=== PATIENT | male | born 1960 | race Two or more races ===

== ENCOUNTER 2020-09-07 04:58 | Inpatient (IN) | payer OTHER ==
[2020-09-07] VITALS (22 sets, daily range): BP systolic 119–157; BP diastolic 66–89
[~2020-09-07] VITALS: Ht 170.2 cm; Wt 83.0 kg
[~2020-09-07 04:58] MED LIST: LIPITOR40 MG ORAL; VITAMIN D PO
[2020-09-07] MEDS ORDERED: Ropivacaine 5mg/ml Vial 30ml INJ ONE (06:37)
[2020-09-07] MEDS ORDERED: Thrombin 5000 units TOPIC ONE (06:37)
[2020-09-07] MEDS ORDERED: Gelfoam Size TOPIC ONE (06:37)
[2020-09-07] MEDS ORDERED: Bacitracin 50000 Units Vial ONE (06:37)
[2020-09-07] MEDS ORDERED: Atropine Sulfate 0.4mg/ml inj IVP PRN (06:45)
[2020-09-07] MEDS ORDERED: Acetaminophen (Non formulary) 100 ML IV ONE (06:45)
[2020-09-07] MEDS ORDERED: Meperidine 25mg/1ml Inj (FOR RIGORS ONLY) IV PRN (06:45)
[2020-09-07] MEDS ORDERED: Metoclopramide 10mg/2ml Inj IVP PRN ×2 (06:45→08:45)
[2020-09-07] MEDS ORDERED: LR 1000ml 1,000 ML IVLG SCH (06:45)
[2020-09-07] MEDS ORDERED: Labetalol 5mg/ml 20ml vial IV PRN (06:45)
[2020-09-07] MEDS ORDERED: Ketorolac 30mg Inj IV PRN ×2 (06:45)
[2020-09-07] MEDS ORDERED: LORazepam Inj 2mg/ml 1ml IV PRN (06:45)
[2020-09-07] MEDS ORDERED: oxyCODONE HCL/Acetaminophen 5/325mg ORAL PRN (06:45)
[2020-09-07] MEDS ORDERED: Midazolam 2mg/2ml Inj IVP PRN (06:45)
[2020-09-07] MEDS ORDERED: fentaNYL 100 mcg/2 mL IV PRN (06:45)
[2020-09-07] MEDS ORDERED: Hydromorphone 0.5mg/0.5ml inj IVP PRN (06:45)
[2020-09-07] MEDS ORDERED: HYDROcodone/Acetamin 7.5/325 tab ORAL PRN ×3 (06:45→08:45)
[2020-09-07] MEDS ORDERED: DiphenhydrAMINE 50mg/ml Inj IVP PRN (06:45)
[2020-09-07] MEDS ORDERED: HYDROcodone/Acetamin 5/325 tab ORAL PRN (06:45)
--- NOTE | 2020-09-07 06:48 | Anethesia Preoperative Eval ---
Anesthesia Pre-op PMH/ROS General Date of Evaluation: Sep 07, 2020 Time of Evaluation: 06:49 Anesthesiologist: Antonio ASA Score: ASA 3 Mallampati Score Class I : Soft palate, uvula, fauces, pillars visible Class II: Soft palate, uvula, fauces visible Class III: Soft palate, base of uvula visible Class IV: Only hard plate visible Mallampati Classification: Class II Surgeon: Mario Diagnosis: Back Pain Surgical Procedure: ALIF L5-S1 Anesthesia History: none Family History: no anesthesia problems Allergies: Coded Allergies: No Known Allergies (Unverified , 09/03/20) Medications: see eMAR Patient NPO?: Yes Past Medical History Cardiovascular: Reports: HTN, other - HL Gastrointestinal/Genitourinary: Reports: GERD Other: obesity - BMI 30 PSxH Narrative: Prev Back Sx Anesthesia Pre-op Phys. Exam Physician Exam Last Vital Signs Date Time Temp Pulse Resp B/P (MAP) Pulse Ox O2 Delivery O2 Flow Rate FiO2 09/07/20 05:40 Room Air 09/07/20 05:38 98.4 56 18 142/88 (106) 98 Constitutional: NAD Neurologic: CN 2-12 intact Cardiovascular: RRR Respiratory: CTA Gastrointestinal: S/NT/ND Airway Exam Mallampati Score: Class II MO: full ROM: limited Teeth: missing, intact Anesthesia Pre-op A/P Risk Assessment & Plan Assessment: ASA 3 Plan: GA, SED, GlideScope Status Change Before Surgery: No Pre-Antibiotics Dru Grams Ancef IV Given Within 1 Hr of Incision: Yes Time Given: 07:21 Ras Alvarez MD Sep 07, 2020 06:47
--- NOTE | 2020-09-07 06:48 | Pre-Procedure Note/Attestation ---
Pre-Procedure Note/Attestation Complete Prior to Procedure Planned Procedure: not applicable Procedure Narrative: Planned L5/S1 Anterior Lumbar Decompression and Fusion Indications for Procedure Pre-Operative Diagnosis: Low Back pain Attestation I attest that I discussed the nature of the procedure; its benefits; risks and complications; and alternatives (and the risks and benefits of such alternatives), prior to the procedure, with the patient (or the patient's legal district representative). I attest that, if there was a reasonable possibility of needing a blood transfusion, the patient (or the patient's legal district representative) was given the [facility] standardized written summary, pursuant to the [place] Blood Safety Act ([place] Health and Safety Code # 1645, as amended). I attest that I re-evaluated the patient just prior to the surgery and that there has been no change in the patient's H&P, except as documented below: Pedro Dunn Sep 07, 2020 06:48
[2020-09-07] MEDS ORDERED: Sodium Chloride 10ml vial INJ ONE (06:50)
[2020-09-07] MEDS ORDERED: Lidocaine 1% MPF 10mg/ml 5ml ONE (06:50)
[2020-09-07] MEDS ORDERED: Lidocaine 1% Plain 30 ml INJ ONE (06:59)
[2020-09-07] MEDS ORDERED: propofoL 1,000mg/100ml IV ONE (07:00)
[2020-09-07] MEDS ORDERED: Neostigmine 1mg/ml 10ml Inj ONE (07:00)
[2020-09-07] MEDS ORDERED: NS Irrig 1000ml ONE (07:00)
[2020-09-07] MEDS ORDERED: Sterile Water Irrig 1000ml IRRIG ONE (07:00)
[2020-09-07] MEDS ORDERED: LR 1000ml ONE (07:00)
[2020-09-07] MEDS ORDERED: ceFAZolin sod 1 GM in NS 55 ML IVPB ONE (07:00)
--- NOTE | 2020-09-07 07:49 | Immediate Post-Op Evaluation ---
Immediate Post-Op Evalulation Immediate Post-Op Evalulation Procedure: ALIF L5-S1 Date of Evaluation: Sep 07, 2020 Time of Evaluation: 09:20 IV Fluids: 1000 LR Blood Products: 0 Estimated Blood Loss: 25 Urinary Output: 0 Blood Pressure Systolic: 103 Blood Pressure Diastolic: 83 Pulse Rate: 66 Respiratory Rate: 16 O2 Sat by Pulse Oximetry: 100 Temperature (Fahrenheit): 98.8 Pain Score (1-10): 2 Nausea: No Vomiting: No Complications 0 Patient Status: awake, reacts, patent, extubated, none Hydration Status: adequate Dru Grams Ancef IV Given Within 1 Hr of Incision: Yes Time Given: 07:21 Ras Alvarez MD Sep 07, 2020 07:49
--- NOTE | 2020-09-07 07:50 | 48 Hour Post Anesthesia Eval ---
Post Anesthesia Evaluation Procedure: ALIF L5-S1 Date of Evaluation: Sep 07, 2020 Time of Evaluation: 11:46 Blood Pressure Systolic: 136 0: 78 Pulse Rate: 64 Respiratory Rate: 18 Temperature (Fahrenheit): 98.6 O2 Sat by Pulse Oximetry: 100 Airway: patent Nausea: No Vomiting: No Pain Intensity: 2 Hydration Status: adequate Cardiopulmonary Status: Stable Mental Status/LOC: patient returned to baseline Follow-up Care/Observations: 0 Post-Anesthesia Complications: 0 Follow-up care needed: N/A Ras Alvarez MD Sep 07, 2020 07:50
[2020-09-07] MEDS ORDERED: Glycopyrrolate 0.2mg/ml 1ml Vial ONE ×2 (08:06→08:37)
--- NOTE | 2020-09-07 08:42 | Operative Note - PDOC ---
Operative Note Operative Note Pre-op Diagnosis: Low Back pain Procedure: Anterior L5/S1 Lumbar Decompression and Fusion Post-op Diagnosis: same as pre-op Operative Findings: consistent w/pre-op dx studies Surgeon: Mario Head Pastry Chef: VARSHA Dunn Additional Surgeons: Vega - Vascular Access Anesthesiologist: Woo Chahal Anesthesia: general Specimen: yes Condition: stable Drains: none Implant(s) used?: Yes - Lex InFix Meduim +degree, 8mm height, Lex DBPedro Nicole Sep 07, 2020 08:42
[2020-09-07] MEDS ORDERED: HYDROmorphone 1mg/ml Carpuject SUBQ PRN (08:45)
[2020-09-07] MEDS ORDERED: Naloxone 0.4mg/ml Inj IVP PRN (08:45)
[2020-09-07] MEDS ORDERED: HYDROmorphone 1mg/ml Carpuject IVP PRN (08:45)
[2020-09-07] MEDS ORDERED: Rate Change PCA 1 Each MISC PRN ×2 (09:00)
[2020-09-07] MEDS ORDERED: PCA HYDROmorphone 1mg/ml 30 ML IV PRN (09:00)
[2020-09-07] MEDS ORDERED: PCA Education Pamphlet MISC ONE ×2 (09:00)
--- NOTE | 2020-09-07 09:59 | Operative Note - Dictated ---
DATE OF OPERATION: 09/07/2020 ANESTHESIA: General endotracheal with arterial blood pressure monitoring. ANESTHESIOLOGIST: Ras Alvarez MD. CO-SURGEON: Dr. Vega, for vascular approach. SURGEON: Pedro Martin MD. GROUND INTELLIGENCE OFFICER: Mere Gupta PREOPERATIVE DIAGNOSIS: Collapse, instability, canal and foraminal stenosis at L5-S1. POSTOPERATIVE DIAGNOSIS: Collapse, instability, canal and foraminal stenosis at L5-S1. OPERATIVE PROCEDURE: Left pararectus retroperitoneal approach to the lumbar spine with vessel mobilization and retraction by Dr. Vega using a table fixed frame reverse tip blades followed by an anterior annulotomy, nuclear discectomy, partial vertebrectomy, and open reduction and internal fixation using an InFix cage medium in size, 8 mm in height with 3 + 3 degrees of lordosis. Fusion was accomplished using autogenous bone harvested during decompression. Image intensifier was also used. The patient was prepped and draped supine on the operating table. The anterior incision paramidline was made by Dr. Vega. The rectus was mobilized. The retroperitoneal space was entered. The aorta and iliac vessels were identified, freed and retracted allowing access to the anterior anulus of the lumbosacral disc. There were hypertrophic osteophytes most prominent on the left making it difficult to approach the disc from the left side. There was less of an osteophytic obstruction in the center and right. The anterior osteophytes were removed following direct excision of the exposed anulus. The cartilaginous endplate and soft disc was then removed slowly from front to back using angled and straight curettes, pituitaries and Kerrisons. [id number]-[id number] distraction was accomplished with 8 mm to 11 mm lordotic distractors. There were placed from [id number] to allow progressively more visualization of the disc until the posterior disc was visualized in the PLL and disc anulus were removed as well as posterior osteophytes. The space was distracted with an 8 mm template in position. The distraction was symmetrical although the position of the distractor was more to the right, anterior to the posterolateral corner of the vertebral body where there was a nerve root extending outward into the foramen. The endplates were placed in with 3 + 3 degrees of lordosis. The side struts were then tapped into place and the position was checked. The building cleaning supervisor was then removed and the position was again checked and then locked into place by cold welding of the endplates to the lateral support. Position was again checked. There was good contact with the endplates with distraction of the disc with overall lordosis although because of the osteophytic asymmetry. The implant was locked one side than the other however with very good stabilization and good total contact. The wound was copiously irrigated. The anterior wound was closed including the anterior posterior rectus sheath, subcutaneous and skin. Blood loss was not significant. The patient was placed in a compression bandage and returned to recovery room in good condition. Pedro Martin M.D. DR: BRIDGETT JOB#: [id number] CC: JAZZMINE
--- NOTE | 2020-09-07 11:00 | NUR ---
NURSE NOTES: PATIENT ARRIVED TO ROOM ON BED. AOX4. ASSESSMENT DONE. DENIES PAIN TO SURGICAL SITE. DRSG C/D/I. NPO PER MD ORDERS. PATIENT AWARE. PATIENT INSTRUCTED HOW TO USE DRIFT MINER. RETURN DEMONSTRATION GOOD. PATIENT ORIENTED TO ROOM. BED IN LOW AND LOCKED POSITION. CALL LIGHT WITHIN ARM'S REACH. REPORT RECEIVED.
[2020-09-07] MEDS: D5 1/2NS w/KCl 20mEq 1,000 ML IV SCH ×2 (13:08→23:25)
--- NOTE | 2020-09-07 13:27 | Diagnostic Imaging Report ---
CLINICAL HISTORY: Back pain. Fluoroscopic imaging from spinal surgery COMPARISON: None FINDINGS: Fluoroscopy independent procedure performed for spinal surgery. 8.5 seconds of fluoroscopy time utilized by the ordering physician. Total cumulative dose is 3.61 mGy and 0.1154 mGy.m2. Total of 3 spot images are obtained. IMPRESSION: FLUOROSCOPIC IMAGING FROM SPINAL SURGERY. PLEASE SEE OPERATIVE REPORT.
[2020-09-07] MEDS: ceFAZolin sod 1 GM in D5W 55 ML IV SCH ×2 (14:46→22:17)
--- NOTE | 2020-09-07 15:59 | Operative Note - Dictated ---
DATE OF OPERATION: 09/07/2020 VASCULAR SURGEON: Wiliam Vega MD SPINE SURGEON: Pedro Martin MD BLOCK MACHINE OPERATOR: ANMOL Gupta PREOPERATIVE DIAGNOSIS: Lumbar pain. POSTOPERATIVE DIAGNOSIS: Lumbar pain. PROCEDURE: Anterior retroperitoneal exposure of L5-S1 vertebral interspace, right retroperitoneal approach. INDICATIONS: The patient is a very pleasant gentleman who was seen prior to surgery. He has been scheduled for anterior spine operation at L5-S1. He has no prior history of anterior spine surgery. No history of deep venous thrombosis or bleeding complications described. Discussion was had both with him and his , both in Montenegrin and Wallisian, to explain the risks of vascular surgery, possibly vascular injury, possible need for blood transfusion, deep venous thrombosis prophylaxis were discussed. DESCRIPTION OF FINDINGS: A vertical midline incision was used. Right retroperitoneal approach was used. There was no peritoneal or ureteral violation. There was no vascular injury. Exposure of L5-S1 was obtained below the iliac bifurcation confirmed with fluoroscopy. On completion, the peritoneum and ureter intact. Iliac vessels intact. BLOOD LOSS: Less than 100 mL. COMPLICATIONS: None. DESCRIPTION OF PROCEDURE: The patient was taken to the operative room. General anesthesia was induced. IV antibiotics were given. The patient's abdomen was prepped and draped. Appropriate time-out for procedure was taken. A low vertical midline incision was made infraumbilically. The anterior fascia was incised onto its midline. A plane was identified posterior to the right rectus abdominis and developed posterolaterally towards the patient's right. The retroperitoneal space was entered. Upon entry below the arcuate line, the peritoneum and ureter was swept towards the patient's left exposing the right common iliac artery and vein. Dissection carried medially around the right iliac vessels and then the anterior surface of L5-S1 was palpated. The right iliac vessels were retracted laterally. The peritoneum and ureter were swept towards the patient's left. The middle sacral vessels were ligated with vascular clips and divided and then the medial border of the left iliac vein was visualized and swept laterally and Omni retractors were placed. Fluoroscopy was used to confirm the appropriate level. The instrumentation was performed at L5-S1 and dictated separately. On completion, retractor gently removed. The peritoneum and ureter were intact. Iliac vessels intact. Anterior fascia was then closed with #1 PDS in running fashion and the skin and subcutaneous tissue were then closed with 3-0 Vicryl and 4-0 Monocryl in running subcuticular closure technique. Estimated blood loss less than 100 mL. Complications none. Wiliam Vega M.D. DR: URBANO JOB#: [id number] CC: MD WILIAM Vasquez MD ; FAX#: [phone]
--- NOTE | 2020-09-07 18:00 | NUR ---
NURSE NOTES: PATIENT REMAINS STABLE AFTER SURGERY. ABD SURGICAL SITE C/D/I. NO FLATUS PRESENT. PAIN CONTROLLED WITH MECHANICAL ASSEMBLY TECHNICIAN. VSS. AFEBRILE. PATIENT ENCOURAGE TO C/D/B AND USE I/S INSTRUCTED RETURN DEMONSTRATION SUCCESSFUL. VOIDING W/O DIFFICULTY.
[2020-09-07] MEDS ORDERED: PCA shift volume MISC SCH (19:00)
[2020-09-07] MEDS: PCA shift volume MISC SCH (19:12)
--- NOTE | 2020-09-07 19:27 | NUR ---
NURSE HAND-OFF: Important Events on Shift: NONE Patient Status: STABLE Diet: STRICT NPO Pending Orders: N/A Pending Results/Labs:N/A Pending MD notification:N/A Latest Vital Signs: Temperature 98.4 , Pulse 86 , B/P 120 /68 , Respiratory Rate 18 , O2 SAT 97 , Nasal Cannula, 3 L Vital Sign Comment: HAS ETCO2 ATTACHED. Latest Rg Fall Score: 35 Fall Risk: Medium Risk Safety Measures: Call light , Bed Alarm , Side Rails Side Rails x2, Bed position . Fall Precautions: Report given to QUOC MAY
--- NOTE | 2020-09-07 19:34 | NUR ---
NURSE NOTES: Patient awake in bed, alert and oriented x4, on O2 @ 3LPM via nasal cannula. Dressing dry and intact with small stain. Per patient he hasn't passed gas yet. Instructed to use call light for assistance. Bed in lowest, lock engaged and alarm on. Will continue to monitor.
[2020-09-08] VITALS: BP 123/73
[2020-09-08 04:00] VITALS: BP_SYST 123; BP_SYST 127; BP_SYST 150; BP_DIAS 69; BP_DIAS 73; BP_DIAS 83
[2020-09-08] MEDS: ceFAZolin sod 1 GM in D5W 55 ML IV SCH (06:05)
[2020-09-08] MEDS: PCA shift volume MISC SCH ×2 (07:00→19:10)
--- NOTE | 2020-09-08 07:45 | NUR ---
NURSE NOTES: Patient awake in bed, alert and oriented x4, breathing even and unlabored. Pt c/o pain on surgical site 10/09. Checked ARMORED TRANSPORT SERVICE MANAGER setting. Dressing intact with little stain. Per patient he hasn't passed gas yet. Instructed to use call light for assistance. Pt verbalized understanding. Bed in lowest, lock engaged and alarm on. Will continue to monitor.
[2020-09-08 08:00] VITALS: BP 130/73
[2020-09-08] MEDS: D5 1/2NS w/KCl 20mEq 1,000 ML IV SCH ×2 (08:00→17:54)
--- NOTE | 2020-09-08 09:30 | NUR ---
PT EVALUATION NOTE Patient seen for initial evaluation and treatment initiated. Patient presents with pain and impaired functional mobility s/p lumbar spine surgery. Patient instructed in back precautions and in log roll technique for in/OOB. Patient required min assist for bed mobility and for transfers using FWW. Patient c/o dizziness in sitting and standing and declined ambulation, however was able to take several small side steps with the FWW. Patient will benefit from skilled inpatient PT intervention to improve functional mobility, safety and activity tolerance, and to ensure compliance with spine precautions. Anticipate discharge home once medically cleared by MD. Recommend FWW for ambulation and raised toilet seat for home use. Addendum: 09/08/20 at 1243 by NOAH VALLEJO PT Amended: Links added.
[2020-09-08 12:00] VITALS: BP 134/66
[2020-09-08] MEDS ORDERED: ATORVASTATIN CA20 MG ORAL (12:25)
[2020-09-08] MEDS ORDERED: VITAMIN D3125 MCG PO (12:25)
--- NOTE | 2020-09-08 12:47 | General Surgery Progress Note ---
General Surgery-Progress Note Subjective Procedure Performed Anterior L5/S1 Lumbar Decompression and Fusion Symptoms: improved Objective Last 24 Hour Vital Signs Date Time Temp Pulse Resp B/P (MAP) Pulse Ox O2 Delivery O2 Flow Rate FiO2 09/08/20 09:00 Room Air 09/08/20 08:00 99.2 75 16 130/73 (92) 100 09/08/20 08:00 66 18 100 09/08/20 04:00 97.6 64 16 150/83 (105) 100 09/08/20 04:00 66 18 100 09/08/20 00:00 99.0 66 16 123/73 (90) 100 09/08/20 00:00 66 16 100 09/07/20 21:00 Nasal Cannula 3.0 09/07/20 20:00 61 16 99 09/07/20 20:00 98.1 61 16 157/75 (102) 99 09/07/20 16:00 86 18 97 09/07/20 15:46 98.4 86 18 120/68 (85) 97 09/07/20 14:00 99.0 78 16 119/67 (84) 99 09/07/20 13:00 99.0 60 18 127/69 (88) 97 I&O Intake and Output 09/07/20 09/08/20 19:00 07:00 Intake Total 1855 ml 955 ml Output Total 300 ml 2100 ml Balance 1555 ml -1145 ml Intake IV Total 1855 ml 955 ml Output Urine Total 250 ml 2100 ml Estimated Blood Loss 50 ml # Voids 6 Dressing: dry Wound: clean Drains: none Additional Comments Patient getting out of bed with physical therapy, no brace. No lower GI activity yet. Neuro intact. Pedro Trotter Sep 08, 2020 12:47
[2020-09-08 16:00] VITALS: BP_SYST 112; BP_SYST 119; BP_DIAS 66; BP_DIAS 69
--- NOTE | 2020-09-08 19:05 | NUR ---
NURSE NOTES: Received report from LEXUS Peterson. Pt is A&Ox4 in bed in no distress. Pt is able to make needs known. IVF infusing well, FUEL SYSTEM MAINTENANCE WORKER Dilaudid in place. Call light within reach, bed locked and in lowest position. Waiting for patient to pass gas in order to advance diet. Will continue to monitor.
--- NOTE | 2020-09-08 19:22 | NUR ---
NURSE HAND-OFF: Important Events on Shift:[No passing gas, still NPO, had physical therapy] Patient Status: [] Diet: [NPO] Pending Orders: [] Pending Results/Labs:[] Pending MD notification:[] Latest Vital Signs: Temperature 98.8 , Pulse 66 , B/P 119 /66 , Respiratory Rate 18 , O2 SAT 100 , Nasal Cannula, O2 Flow Rate 3.0 . Vital Sign Comment: [stable] Latest Rg Fall Score: 35 Fall Risk: Medium Risk Safety Measures: Call light Within Reach, Bed Alarm Zone 1, Side Rails Side Rails x2, Bed position Low and Locked. Fall Precautions: Yellow Socks Door Sign Patient Fall Education Report given to [LEXUS Adler].
[2020-09-08 20:00] VITALS: BP 118/74
[2020-09-09] VITALS (7 sets, daily range): BP systolic 121–127; BP diastolic 68–83
[2020-09-09] MEDS: D5 1/2NS w/KCl 20mEq 1,000 ML IV SCH ×2 (03:32→14:06)
[2020-09-09] MEDS: PCA shift volume MISC SCH (07:25)
--- NOTE | 2020-09-09 07:29 | NUR ---
NURSE HAND-OFF: Important Events on Shift: MEAT SUPERVISOR pump controlling pain well Patient Status: calm Diet: NPO Pending Orders: Pending Results/Labs: Pending MD notification: Latest Vital Signs: Temperature 98.9 , Pulse 70 , B/P 124 /71 , Respiratory Rate 18 , O2 SAT 96 , Nasal Cannula, O2 Flow Rate 3.0 . Vital Sign Comment: VSS Latest Rg Fall Score: 35 Fall Risk: Medium Risk Safety Measures: Call light Within Reach, Bed Alarm Zone 1, Side Rails Side Rails x2, Bed position Low and Locked. Fall Precautions: Yellow Socks Door Sign Patient Fall Education Report given to LEXUS Peterson.
--- NOTE | 2020-09-09 07:45 | NUR ---
NURSE NOTES: Patient awake in bed, alert and oriented x4, breathing even and unlabored. Denies pain at this time. Checked SHIPPING HELPER setting. Per night nurse pt had little gas. Will follow up to start diet. Instructed to use call light for assistance. Pt verbalized understanding. Bed in lowest, lock engaged and alarm on. Will continue to monitor.
--- NOTE | 2020-09-09 09:36 | General Surgery Progress Note ---
General Surgery-Progress Note Subjective Procedure Performed Anterior L5/S1 Lumbar Decompression and Fusion Objective Last 24 Hour Vital Signs Date Time Temp Pulse Resp B/P (MAP) Pulse Ox O2 Delivery O2 Flow Rate FiO2 09/09/20 08:00 70 18 95 09/09/20 08:00 101.3 74 18 122/79 (93) 95 09/09/20 04:00 98.9 70 18 124/71 (88) 96 09/09/20 04:00 70 18 96 09/09/20 00:00 99.0 69 18 125/72 (89) 96 09/09/20 00:00 69 18 96 09/08/20 21:00 Room Air 09/08/20 20:00 72 20 96 09/08/20 20:00 98.4 72 20 118/74 (89) 96 09/08/20 16:00 98.8 69 20 112/69 (83) 97 09/08/20 16:00 66 18 100 09/08/20 12:00 66 18 100 09/08/20 12:00 102.2 82 20 134/66 (88) 100 09/08/20 11:39 99.9 I&O Intake and Output 09/08/20 09/09/20 19:00 07:00 Output Total 1200 ml Balance -1200 ml Output Urine Total 1200 ml Dressing: dry Wound: clean Additional Comments Patient beginning to pass gas, will advance to clears. Wound clean and dry. Out of bed with physical therapy. Dr. Madden followingPedro Fitzgerald Sep 09, 2020 09:36
--- NOTE | 2020-09-09 17:14 | General Progress Note ---
Subjective Allergies: Coded Allergies: No Known Allergies (Unverified , 09/03/20) Subjective care noted asked to follow up postop Objective Last 24 Hour Vital Signs Date Time Temp Pulse Resp B/P (MAP) Pulse Ox O2 Delivery O2 Flow Rate FiO2 09/09/20 16:00 100.0 89 20 123/83 (96) 96 09/09/20 12:00 99.5 79 20 124/68 (86) 95 09/09/20 09:28 99.2 09/09/20 09:00 Room Air 09/09/20 08:00 70 18 95 09/09/20 08:00 101.3 74 18 122/79 (93) 95 09/09/20 04:00 98.9 70 18 124/71 (88) 96 09/09/20 04:00 70 18 96 09/09/20 00:00 99.0 69 18 125/72 (89) 96 09/09/20 00:00 69 18 96 09/08/20 21:00 Room Air 09/08/20 20:00 72 20 96 09/08/20 20:00 98.4 72 20 118/74 (89) 96 Intake and Output 09/08/20 09/09/20 19:00 07:00 Output Total 1200 ml Balance -1200 ml Output Urine Total 1200 ml Height (Feet): 5 Height (Inches): 7.00 Weight (Pounds): 183 Objective WDWN NAD clear breath sounds bilaterally without rhonchi or wheeze [id number] without MRG NABS nontender no HSM no CCE nonfocal Assessment/Plan Assessment/Plan: Anterior L5/S1 Lumbar Decompression and Fusion lumbar disc disease back pain elevated cholesterol PLAN 1. incentive spirometry 2. SCD 3. PT evaluation and therapy 4. Hydration and advance diet 5. Pain management 6. discharge once stable with outpatient follow up Wale Madden MD Sep 09, 2020 17:14
--- NOTE | 2020-09-09 19:30 | NUR ---
NURSE NOTES: Patient awake in bed, alert and oriented x4, on room air, with complaint of moderate pain round surgical site. Will medicate as ordered. Call light and needs in reach. Bed in lowest and lock engaged. Will continue to monitor.
--- NOTE | 2020-09-09 19:36 | NUR ---
NURSE HAND-OFF: Important Events on Shift:[New admission, Pain management, ABX therapy] Patient Status: [] Diet: [] Pending Orders: [] Pending Results/Labs:[] Pending MD notification:[] Latest Vital Signs: Temperature 99.0 , Pulse 89 , B/P 123 /83 , Respiratory Rate 20 , O2 SAT 96 , Nasal Cannula, O2 Flow Rate 3.0 . Vital Sign Comment: [] Latest Rg Fall Score: 35 Fall Risk: Medium Risk Safety Measures: Call light Within Reach, Bed Alarm Zone 1, Side Rails Side Rails x2, Bed position Low and Locked. Fall Precautions: Yellow Socks Door Sign Patient Fall Education Report given to [].
[2020-09-09] MEDS ORDERED: Atorvastatin 20mg tab ORAL SCH (21:00)
[2020-09-10] MEDS: D5 1/2NS w/KCl 20mEq 1,000 ML IV SCH ×2 (00:10→10:00)
[2020-09-10 04:00] VITALS: BP 126/70
--- NOTE | 2020-09-10 07:00 | NUR ---
NURSE HAND-OFF: Important Events on Shift: Patient Status: Diet: Pending Orders: Pending Results/Labs: Pending MD notification: Latest Vital Signs: Temperature 98.7 , Pulse 60 , B/P 126 /70 , Respiratory Rate 18 , O2 SAT 97 , Nasal Cannula, O2 Flow Rate 3.0 . Vital Sign Comment: Latest Rg Fall Score: 35 Fall Risk: Medium Risk Safety Measures: Call light Within Reach, Bed Alarm Zone 1, Side Rails Side Rails x2, Bed position Low and Locked. Fall Precautions: Yellow Socks Door Sign Patient Fall Education Report given to LEXUS Rodriguez.
--- NOTE | 2020-09-10 07:53 | NUR ---
NURSE NOTES: Notified Dr. Madden regarding patient complaints of feeling constipated and no BM since Sunday. Patient abdomen is not distended but patient complaining of pain on back, aching.
[2020-09-10 08:00] VITALS: BP 141/77
--- NOTE | 2020-09-10 08:23 | NUR ---
NURSE NOTES: Dr. Madden gave a telephone order for milk of magnesia 30mL daily as needed.
--- NOTE | 2020-09-10 08:27 | General Progress Note ---
Subjective Allergies: Coded Allergies: No Known Allergies (Unverified , 09/03/20) Subjective care noted no distress Objective Last 24 Hour Vital Signs Date Time Temp Pulse Resp B/P (MAP) Pulse Ox O2 Delivery O2 Flow Rate FiO2 09/10/20 04:00 98.7 60 18 126/70 (88) 97 09/09/20 23:53 98.2 64 20 121/76 (91) 95 09/09/20 21:00 Room Air 09/09/20 20:00 98.5 67 20 127/80 (96) 96 09/09/20 19:40 97 Room Air 21 09/09/20 17:36 99.0 09/09/20 16:00 100.0 89 20 123/83 (96) 96 09/09/20 12:00 99.5 79 20 124/68 (86) 95 09/09/20 09:28 99.2 09/09/20 09:00 Room Air Intake and Output 09/09/20 09/10/20 19:00 07:00 Intake Total 580 ml 1100 ml Output Total 1600 ml Balance -1020 ml 1100 ml Intake Oral 480 ml IV Total 100 ml 1100 ml Output Urine Total 1600 ml Height (Feet): 5 Height (Inches): 7.00 Weight (Pounds): 183 Objective WDWN NAD clear breath sounds bilaterally without rhonchi or wheeze [id number] without MRG NABS nontender no HSM no CCE nonfocal Assessment/Plan Assessment/Plan: Anterior L5/S1 Lumbar Decompression and Fusion lumbar disc disease back pain elevated cholesterol PLAN 1. incentive spirometry 2. SCD 3. PT evaluation and therapy 4. Hydration and advance diet 5. Pain management 6. discharge planning impression, plan, and exam edited and reviewed in detail care discussed with Wale Hummel MD Sep 10, 2020 08:27
[2020-09-10] MEDS ORDERED: Milk of Magnesia 30ml Ud ORAL PRN (09:00)
--- NOTE | 2020-09-10 10:13 | NUR ---
NURSE NOTES: Per PT, raised toilet seat and a walker will be needed upon discharge for home use.
--- NOTE | 2020-09-10 10:21 | NUR ---
NURSE NOTES: Dr. Madden gave bland diet order.
[2020-09-10 12:00] VITALS: BP 147/83
--- NOTE | 2020-09-10 14:51 | NUR ---
NURSE NOTES: Per Dr. Madden, patient stable and okay to discharge to home.
--- NOTE | 2020-09-10 15:00 | NUR ---
NURSE NOTES: John (daughter) and patient's was informed of patients discharge per Dr. Madden. John stated, "I will be there with my mom in 2 hours."
--- NOTE | 2020-09-10 15:31 | NUR ---
NURSE NOTES: Raised toilet seat and walker placed bedside for patient to take home after discharge.
[2020-09-10 16:00] VITALS: BP 143/80
--- NOTE | 2020-09-10 17:20 | NUR ---
NURSE NOTES: Ensured that IV site on left hand 20g removed, skin intact, gauze and tape place on site, no skin breakdown noted particularly on sacral, occiput, scapula and heel areas, patient skin intact throughout and is steady on feet, ambulates with walker. Patient family given collapsable walker and raised toilet seat; patient discharge instructions given to patient, incentive spirometer given to family (John) with detailed instructions, norco prescription given to Annais, patient ID band removed and put into bin for shredding, patient alert and oriented x4, able to verbalize needs well and signed off on patient belongings list and patient signature page. Patient in stable condition, v/s WNL, breathing even and unlabored, escorted patient via wheelchair safely into family private vehicle, patient discharged with no adverse events noted. Advised patient and family members to call the healthcare provider or go to the nearest emergency room should any adverse event occur.
--- NOTE | 2020-09-13 09:51 | Discharge Summary ---
Discharge Summary Discharge Summary _ Date of admission: 09/07/2020 Date of discharge: 09/10/[address] Martin History of Present Illness and Brief Hospital Course Mr. Medina is a 59-year-old male who presented to [facility] for a scheduled surgery. Patient had collapse, instability, canal and foraminal stenosis at L5-S1. Patient underwent anterior L5-S1 lumbar decompression and fusion. Patient tolerated the procedure well. The details of the surgery can be found in the operative notes by Dr. Vega, Dr. Martin, and ANMOL Gupta. Patient was observed after the surgery. Patient was found to be getting out of bed with physical therapy. Patient began passing flatus and tolerating clear diet. Patient was encouraged to use incentive spirometry and was placed on SCD for DVT prophylaxis. Patient was medically stable for discharge and was discharged home on 09/10/2020. Discharge Condition Stable Discharge Activity As tolerated Discharge Diet Mechanical soft diet, bland diet Final diagnoses Anterior L5/S1 Lumbar Decompression and Fusion Lumbar disc disease Back pain Hypercholesterolemia I have been assigned to dictate discharge summary for this account. I was not involved in the patient's management Adrian Landa Sep 13, 2020 09:51
== END 2020-09-10 17:20 | disposition home or self-care (01) | DRG 460 ==
LOC: SDSOVERFLO 04:58 → 4E 11:04
PROC: 0SB40ZZ Excision of Lumbosacral Disc, Open Approach (ICD-10-PCS; principal; 2020-09-07 07:00)
PROC: 0SG30A0 Fusion of Lumbosacral Joint with Interbody Fusion Device, Anterior Approach, Anterior Column, Open Approach (ICD-10-PCS; principal; 2020-09-07 07:00)
PROC: 01NR0ZZ Release Sacral Nerve, Open Approach (ICD-10-PCS; principal; 2020-09-07 07:00)
PROC: 01NB0ZZ Release Lumbar Nerve, Open Approach (ICD-10-PCS; principal; 2020-09-07 07:00)
DX: M53.2X7 Spinal instabilities, lumbosacral region (principal); M48.57XA Collapsed vertebra, not elsewhere classified, lumbosacral region, initial encounter for fracture; M48.07 Spinal stenosis, lumbosacral region; E78.5 Hyperlipidemia, unspecified
CPT/HCPCS: 36415; 72020; 76000; 86850; 86900; 86901; 87081; 94003; 94150; J2405; J2710